=== PATIENT | female | born 1980 | race Caucasian/White ===

== ENCOUNTER → 2018-02-16 | Outpatient (CLI) | payer OTHER | LOC: MC.RAD 07:07 | DX: N63.23 Unspecified lump in the left breast, lower outer quadrant (principal); N60.02 Solitary cyst of left breast ==

== ENCOUNTER → 2019-03-15 | Outpatient (CLI) | payer OTHER | LOC: COL.RAD 03-05 14:00 | DX: G93.5 Compression of brain (principal); H57.12 Ocular pain, left eye | CPT/HCPCS: A9585 ==